=== PATIENT | male | born 1960 | race Caucasian/White ===

== ENCOUNTER 2019-08-17 03:16 | Emergency (ER) | payer SELFPAY ==
[~2019-08-17] VITALS: Ht 160 cm; Wt 56.8 kg
[2019-08-17 03:21] VITALS: Ht 160 cm; Wt 56.8 kg
[2019-08-17 03:38] LABS: BASOPHILS 0.2 % (0-2); EOSINOPHILS 2.4 % (0-7); HEMATOCRIT 34.2 % (42.0-54.0); IMMATURE GRANULOCYTES 0.4 % (0-5); LYMPHOCYTES 10.7 % (15-50); MCH 32.3 pg (26.0-34.0); MCHC 35.1 g/dL (31.0-37.0); MCV 92.2 fL (80.0-100.0); MEAN PLATELET VOLUME 9.3 fL (7.4-10.4); NEUTROPHILS 80.3 % (40-80); PLATELET COUNT 325 10x3/uL (130-400); RBC 3.71 10x6/uL (4.20-6.10); RDW 13.2 % (11.5-14.5); WBC 18.8 10x3/uL (4.8-10.8)
[2019-08-17 03:47] LABS: APPEARANCE CLEAR (CLEAR); BILIRUBIN NEGATIVE (NEGATIVE); COLOR YELLOW (YELLOW); GLUCOSE NEGATIVE (NEGATIVE); KETONE NEGATIVE (NEGATIVE); NITRITE NEGATIVE (NEGATIVE); PROTEIN NEGATIVE (NEGATIVE); SPECIFIC GRAVITY 1.005 (1.005-1.020); UROBILINOGEN NORMAL (NORMAL)
[2019-08-17 03:50] LABS: APTT 34.5 SECONDS (22.8-39.4); INR 1.16 (0.85-1.17); PROTIME 14.3 SECONDS (11.6-15.0)
[2019-08-17] MEDS ORDERED: ATIVAN0.5 MG PO (03:51)
[2019-08-17 03:52] LABS: ALBUMIN 2.9 g/dL (3.4-5.0); ALKALINE PHOSPHATASE 148 U/L (46-116); ALT (SGPT) 29 U/L (10-68); BILIRUBIN - TOTAL 0.43 mg/dL (0.2-1.3); CALC OSMOLALITY 279 mosm/kg (275-300); CALCIUM 8.5 mg/dL (8.5-10.1); CARBON DIOXIDE 29.9 mmol/L (21.0-32.0); CHLORIDE - SERUM 103 mmol/L (98-107); CREATININE - SERUM 0.9 mg/dL (0.6-1.3); GLUCOSE 106 mg/dL (74-106); PROTEIN - SERUM 7.8 g/dL (6.4-8.2); SODIUM 139 mmol/L (136-145); UREA NITROGEN 19 mg/dL (7-18); eGFR NON AFRICAN AMERICAN > 90 mL/min (90-120)
[2019-08-17] MEDS ORDERED: VITAMIN B-1100 M1 PO (03:52)
[2019-08-17] MEDS ORDERED: ZYPREXA7.5 MG PO (03:52)
[2019-08-17] MEDS ORDERED: VITAMIN B-121000 MCG PO (03:52)
[2019-08-17] MEDS ORDERED: FOLIC ACID1 MG PO (03:52)
[2019-08-17 03:55] LABS: UDS - AMPHET NEGATIVE QUAL (NEGATIVE); UDS - BARB NEGATIVE QUAL (NEGATIVE); UDS - BENZO POSITIVE QUAL (NEGATIVE); UDS - COCAINE NEGATIVE QUAL (NEGATIVE); UDS - OPIATE NEGATIVE QUAL (NEGATIVE); UDS - PCP NEGATIVE QUAL (NEGATIVE); UDS - THC NEGATIVE QUAL (NEGATIVE)
[2019-08-17 04:05] LABS: CKMB 1.1 U/L (0.0-3.6); CREATINE KINASE 178 UL (21-232); MAGNESIUM - SERUM 1.6 mg/dL (1.8-2.4); THYROID STIMULATING HORMONE 3.13 uIU/mL (0.36-3.74)
[2019-08-17 04:06] LABS: TROPONIN-I < 0.017 ng/mL (0.000-0.060)
[2019-08-17] MEDS ORDERED: AUGMENTIN 875-11 TAB PO (05:14)
[2019-08-17 06:34] VITALS: BP 130/78
== END 2019-08-17 06:35 ==
LOC: D.ER 03:16
PROVIDERS: Family Medicine
DX: F03.91 Unspecified dementia, unspecified severity, with behavioral disturbance (principal)